=== PATIENT | male | born 2000 | race Caucasian/White ===

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

== ENCOUNTER 2021-04-03 14:49 | Outpatient (CLI) | payer MEDICAID | END 2021-04-03 14:50 | disposition home or self-care (01) | LOC: COV 14:49 | PROVIDERS: ATTEND Family Medicine | DX: R05.9 Cough, unspecified (principal); R06.02 Shortness of breath; R53.83 Other fatigue; R07.0 Pain in throat; R09.81 Nasal congestion; J34.89 Other specified disorders of nose and nasal sinuses; Z20.822 Contact with and (suspected) exposure to COVID-19 ==

== ENCOUNTER 2021-10-19 12:56 | Outpatient (CLI) | payer MEDICAID ==
[2021-10-19 13:08] LABS: BASOPHILS % (AUTO) 0.4 %; EOSINOPHILS # (AUTO) 0.2 10^3/uL (0.0-0.7); EOSINOPHILS % (AUTO) 2.8 %; HCT - HEMATOCRIT 44.3 % (42.0-52.0); HGB - HEMOGLOBIN 14.6 g/dL (14.0-18.0); LYMPHOCYTES # (AUTO) 2.9 10^3/uL (1.5-3.5); LYMPHOCYTES % (AUTO) 34.6 %; MEAN CORPUSCULAR HEMOGLOBIN 29.3 pg (27.0-31.0); MEAN PLATELET VOLUME 10.1 fL (7.4-11.4); MONOCYTES # (AUTO) 0.6 10^3/uL (0.0-1.0); MONOCYTES % (AUTO) 6.6 %; NEUTROPHILS # (AUTO) 4.7 10^3/uL (1.5-6.6); NEUTROPHILS % (AUTO) 55.4 %; PLT - PLATELET COUNT 255 10^3/uL (130-450); RED BLOOD COUNT 4.98 10^6/uL (4.70-6.10); RED CELL DISTRIBUTION WIDTH 13.4 % (12.0-15.0); WHITE BLOOD COUNT 8.5 x10^3/uL (4.8-10.8)
[2021-10-19 13:31] LABS: ALBUMIN 4.3 g/dL (3.2-5.5); ALBUMIN/GLOBULIN RATIO 1.3 (1.0-2.2); ALKALINE PHOSPHATASE 73 IU/L (42-121); ALT ALANINE AMINOTRANSFERASE 14 IU/L (10-60); AST ASPARTATE AMINOTRANSFERASE 16 IU/L (10-42); BILIRUBIN,TOTAL 0.3 mg/dL (0.2-1.0); BUN - BLOOD UREA NITROGEN 9 mg/dL (6-20); CALCIUM 9.4 mg/dL (8.5-10.3); CARBON DIOXIDE - CO2 24 mmol/L (21-32); CHLORIDE 104 mmol/L (101-111); CHOL/HDL RATIO 3.8 (<5.0); CHOLESTEROL 140 mg/dL; CREATININE 0.9 mg/dL (0.6-1.2); GFR - MDRD 108 (>89); GLUCOSE 91 mg/dL (70-100); HDL CHOLESTEROL 37 mg/dL; LDL CHOLESTEROL,CALCULATED 85 mg/dL; LDL/HDL RATIO 2.3 (<3.6); SODIUM 140 mmol/L (135-145); TOTAL PROTEIN 7.5 g/dL (6.7-8.2); TRIGLYCERIDES 91 mg/dL; VALPROIC ACID (DEPAKOTE) 75.5 ug/mL; VLDL CHOLESTEROL 18 mg/dL
[2021-10-19 13:44] LABS: LITHIUM 0.68 mmol/L
== END 2021-10-19 12:57 | disposition home or self-care (01) ==
LOC: LAB 12:56
DX: F31.13 Bipolar disorder, current episode manic without psychotic features, severe (principal); F43.10 Post-traumatic stress disorder, unspecified; F25.0 Schizoaffective disorder, bipolar type; Z79.899 Other long term (current) drug therapy
CPT/HCPCS: 36415; 80053; 80061; 80164; 80178; 83721; 85025

== ENCOUNTER 2021-10-21 20:37 | Outpatient (CLI) | payer MEDICAID | END 2021-10-21 20:38 | disposition EMS.NT | LOC: EMS 20:37 | DX: S51.812A Laceration without foreign body of left forearm, initial encounter (principal); X78.9XXA Intentional self-harm by unspecified sharp object, initial encounter ==

== ENCOUNTER 2021-10-21 21:38 | Emergency (ER) | payer MEDICAID ==
[2021-10-21 22:10] LABS: BASOPHILS % (AUTO) 0.2 %; EOSINOPHILS # (AUTO) 0.2 10^3/uL (0.0-0.7); EOSINOPHILS % (AUTO) 2.4 %; HCT - HEMATOCRIT 44.6 % (42.0-52.0); HGB - HEMOGLOBIN 14.5 g/dL (14.0-18.0); LYMPHOCYTES # (AUTO) 2.4 10^3/uL (1.5-3.5); MEAN CORPUSCULAR HEMOGLOBIN 29.1 pg (27.0-31.0); MEAN CORPUSCULAR HGB CONC 32.5 g/dL (32.0-36.0); MEAN CORPUSCULAR VOLUME 89.4 fL (80.0-94.0); MEAN PLATELET VOLUME 10.4 fL (7.4-11.4); MONOCYTES # (AUTO) 0.7 10^3/uL (0.0-1.0); MONOCYTES % (AUTO) 7.6 %; NEUTROPHILS # (AUTO) 5.7 10^3/uL (1.5-6.6); NEUTROPHILS % (AUTO) 63.6 %; PLT - PLATELET COUNT 226 10^3/uL (130-450); RED BLOOD COUNT 4.99 10^6/uL (4.70-6.10); RED CELL DISTRIBUTION WIDTH 13.3 % (12.0-15.0)
[2021-10-21] MEDS ORDERED: NICOTINE 14 MG PATCH TOP STA (22:27)
[2021-10-21 22:29] LABS: ACETAMINOPHEN < 10 ug/mL (10-30); ALBUMIN 4.3 g/dL (3.2-5.5); ALBUMIN/GLOBULIN RATIO 1.4 (1.0-2.2); ALKALINE PHOSPHATASE 72 IU/L (42-121); ALT ALANINE AMINOTRANSFERASE 13 IU/L (10-60); AST ASPARTATE AMINOTRANSFERASE 17 IU/L (10-42); BILIRUBIN,TOTAL 0.4 mg/dL (0.2-1.0); BUN - BLOOD UREA NITROGEN 9 mg/dL (6-20); CALCIUM 9.4 mg/dL (8.5-10.3); CARBON DIOXIDE - CO2 28 mmol/L (21-32); CHLORIDE 103 mmol/L (101-111); CREATININE 0.9 mg/dL (0.6-1.2); ETOH - ETHANOL < 5.0 mg/dL; GFR - MDRD 108 (>89); GLUCOSE 92 mg/dL (70-100); LIPASE 27 U/L (22-51); POTASSIUM 4.5 mmol/L (3.5-5.0); SALICYLATE < 6.0 mg/dL; SODIUM 140 mmol/L (135-145); TOTAL PROTEIN 7.4 g/dL (6.7-8.2)
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
[2021-10-21] MEDS ORDERED: LIDOCAINE 1% 2 ML VIAL SUBQ STA (22:52)
[2021-10-21 23:19] LABS: MUDS CUTOFF CONCENTRATIONS CUTOFF CONC BELOW:
[2021-10-21 23:27] LABS: BILIRUBIN,URINE NEGATIVE (NEGATIVE); GLUCOSE, URINE (UA) NEGATIVE (NEGATIVE); KETONES,URINE (UA) NEGATIVE (NEGATIVE); LEUKOCYTE ESTERASE, URINE NEGATIVE (NEGATIVE); NITRITE,URINE NEGATIVE (NEGATIVE); OCCULT BLOOD,URINE NEGATIVE (NEGATIVE); PH,URINE 7.5 PH (5.0-7.5); PROTEIN,URINE NEGATIVE (NEGATIVE); UROBILINOGEN,URINE 0.2 (NORMAL) E.U./dL (NORMAL)
[2021-10-21 23:29] LABS: CLARITY,URINE CLEAR (CLEAR)
[2021-10-21 23:41] LABS: AMPHETAMINE SCREEN,URINE NEGATIVE (NEGATIVE); BARBITURATE SCREEN,UR NEGATIVE (NEGATIVE); BENZODIAZEPINES SCREEN, URINE NEGATIVE (NEGATIVE); COCAINE SCREEN URINE NEGATIVE (NEGATIVE); METHADONE SCREEN, URINE NEGATIVE (NEGATIVE); METHAMPHETAMINES SCREEN, URINE NEGATIVE (NEGATIVE); OPIATE SCREEN, URINE NEGATIVE (NEGATIVE); OXYCODONE SCREEN, URINE NEGATIVE (NEGATIVE); PROPOXYPHENE SCREEN, URINE NEGATIVE (NEGATIVE); THC CANNABINOID SCREEN, URINE POSITIVE (NEGATIVE); TRICYCLIC ANTIDEPRESSANT,URINE NEGATIVE (NEGATIVE)
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
[2021-10-22] MEDS ORDERED: traZODone 50 MG TABLET PO STA (03:47)
[2021-10-22] MEDS ORDERED: DIVALPROEX DR 125 MG TABLET PO STA (04:15)
[2021-10-22] MEDS ORDERED: LITHIUM 150 MG CAPSULE PO STA (04:15)
[2021-10-22] MEDS ORDERED: OLANZapine ODT 5 MG TABLET TL STA (04:16)
[2021-10-22] MEDS ORDERED: FLUoxetine 10 MG CAPSULE PO STA (04:17)
[2021-10-22] MEDS ORDERED: FLUoxetine 10 MG CAPSULE PO SCH (09:00)
[2021-10-22] MEDS ORDERED: DIVALPROEX DR 250 MG TABLET PO SCH (09:00)
[2021-10-22] MEDS ORDERED: OLANZapine ODT 5 MG TABLET TL SCH (09:00)
[2021-10-22] MEDS ORDERED: LITHIUM 150 MG CAPSULE PO SCH (09:00)
[2021-10-22] MEDS ORDERED: LORazepam 1 MG TABLET PO STA ×2 (15:54→17:16)
[2021-10-22] MEDS: OLANZapine ODT 5 MG TABLET TL SCH (20:43)
[2021-10-22] MEDS: DIVALPROEX DR 250 MG TABLET PO SCH (20:43)
[2021-10-22] MEDS: LITHIUM 150 MG CAPSULE PO SCH (20:43)
[2021-10-22] MEDS ORDERED: traZODone 50 MG TABLET PO SCH (21:00)
[2021-10-22] MEDS ORDERED: NICOTINE 21 MG PATCH TOP STA (23:04)
[2021-10-23 07:36] VITALS: BP 98/52
[2021-10-23] MEDS: DIVALPROEX DR 250 MG TABLET PO SCH (08:28)
[2021-10-23] MEDS: LITHIUM 150 MG CAPSULE PO SCH (08:28)
[2021-10-23] MEDS: OLANZapine ODT 5 MG TABLET TL SCH (08:29)
[2021-10-23] MEDS ORDERED: haloperidoL 1 MG TABLET PO SCH (09:00)
[2021-10-23] MEDS ORDERED: FLUoxetine 10 MG CAPSULE PO SCH (09:00)
== END 2021-10-23 08:36 ==
LOC: EDUNIT# → ED 21:38
DX: S51.812A Laceration without foreign body of left forearm, initial encounter (principal); T14.91XA Suicide attempt, initial encounter; X78.1XXA Intentional self-harm by knife, initial encounter; F17.200 Nicotine dependence, unspecified, uncomplicated; Z20.822 Contact with and (suspected) exposure to COVID-19
CPT/HCPCS: 12002; 36415; 80053; 80178; 80306; 80307; 80320; 80329; 81003; 83690; 84443; 85025; 87635; 99283; 99285; A9270; G0425; J8499; Q3014; 81001; 87086

== ENCOUNTER 2023-03-28 11:17 | Outpatient (CLI) | payer MEDICARE, MEDICAID ==
[2023-03-28 11:29] LABS: BASOPHILS % (AUTO) 0.5 %; EOSINOPHILS # (AUTO) 0.2 10^3/uL (0.0-0.7); EOSINOPHILS % (AUTO) 2.4 %; HCT - HEMATOCRIT 46.6 % (42.0-52.0); HGB - HEMOGLOBIN 16.1 g/dL (14.0-18.0); LYMPHOCYTES # (AUTO) 2.3 10^3/uL (1.5-3.5); LYMPHOCYTES % (AUTO) 25.9 %; MEAN CORPUSCULAR HEMOGLOBIN 27.6 pg (27.0-31.0); MEAN CORPUSCULAR HGB CONC 34.5 g/dL (32.0-36.0); MEAN CORPUSCULAR VOLUME 79.9 fL (80.0-94.0); MEAN PLATELET VOLUME 10.2 fL (7.4-11.4); MONOCYTES # (AUTO) 0.5 10^3/uL (0.0-1.0); MONOCYTES % (AUTO) 5.5 %; NEUTROPHILS # (AUTO) 5.7 10^3/uL (1.5-6.6); NEUTROPHILS % (AUTO) 65.5 %; PLT - PLATELET COUNT 296 10^3/uL (130-450); RED BLOOD COUNT 5.83 10^6/uL (4.70-6.10); WHITE BLOOD COUNT 8.8 x10^3/uL (4.8-10.8)
[2023-03-28 11:46] LABS: BILIRUBIN,URINE NEGATIVE (NEGATIVE); GLUCOSE, URINE (UA) NEGATIVE (NEGATIVE); KETONES,URINE (UA) NEGATIVE (NEGATIVE); LEUKOCYTE ESTERASE, URINE NEGATIVE (NEGATIVE); NITRITE,URINE NEGATIVE (NEGATIVE); OCCULT BLOOD,URINE NEGATIVE (NEGATIVE); PH,URINE 6.5 PH (5.0-7.5); PROTEIN,URINE NEGATIVE (NEGATIVE); UROBILINOGEN,URINE 0.2 (NORMAL) E.U./dL (NORMAL)
[2023-03-28 11:47] LABS: CALCIUM 10.4 mg/dL (8.5-10.3); CHOL/HDL RATIO 5.2 (<5.0); CHOLESTEROL 165 mg/dL; HDL CHOLESTEROL 32 mg/dL; LDL CHOLESTEROL,CALCULATED 97 mg/dL; TRIGLYCERIDES 179 mg/dL (48-352); VLDL CHOLESTEROL 36 mg/dL
[2023-03-28 11:50] LABS: CLARITY,URINE CLEAR (CLEAR)
[2023-03-28 11:52] LABS: LITHIUM 0.59 mmol/L
[2023-03-28 12:00] LABS: THYROID STIMULATING HORMONE 4.52 uIU/mL (0.34-5.60)
[2023-03-28 16:33] LABS: ESTIMATED AVERAGE GLUCOSE 103 mg/dL (70-100); HEMOGLOBIN A1c% 5.2 % (4.27-6.07)
== END 2023-03-28 11:18 | disposition home or self-care (01) ==
LOC: LAB 11:17
PROVIDERS: ATTEND Nurse Practitioner Psychiatric/Mental Health
DX: F31.13 Bipolar disorder, current episode manic without psychotic features, severe (principal); F43.10 Post-traumatic stress disorder, unspecified; F25.0 Schizoaffective disorder, bipolar type; Z79.899 Other long term (current) drug therapy
CPT/HCPCS: 36415; 80061; 80178; 81003; 82310; 83036; 83721; 84443; 85025

== ENCOUNTER 2023-05-27 08:00 | Outpatient (CLI) | payer MEDICARE, MEDICAID | END 2023-05-27 08:01 | disposition home or self-care (01) | LOC: LAB.S 08:00 | DX: Z51.81 Encounter for therapeutic drug level monitoring (principal); Z79.899 Other long term (current) drug therapy | CPT/HCPCS: 81002 ==

== ENCOUNTER 2023-05-30 10:35 | Outpatient (CLI) | payer MEDICARE, MEDICAID ==
[2023-05-30 10:49] LABS: BASOPHILS % (AUTO) 0.5 %; EOSINOPHILS # (AUTO) 0.3 10^3/uL (0.0-0.7); EOSINOPHILS % (AUTO) 4.1 %; HCT - HEMATOCRIT 45.2 % (42.0-52.0); HGB - HEMOGLOBIN 14.8 g/dL (14.0-18.0); LYMPHOCYTES # (AUTO) 2.7 10^3/uL (1.5-3.5); LYMPHOCYTES % (AUTO) 34.7 %; MEAN CORPUSCULAR HEMOGLOBIN 28.1 pg (27.0-31.0); MEAN CORPUSCULAR HGB CONC 32.7 g/dL (32.0-36.0); MEAN CORPUSCULAR VOLUME 85.8 fL (80.0-94.0); MEAN PLATELET VOLUME 10.9 fL (7.4-11.4); MONOCYTES # (AUTO) 0.5 10^3/uL (0.0-1.0); MONOCYTES % (AUTO) 6.4 %; NEUTROPHILS # (AUTO) 4.2 10^3/uL (1.5-6.6); PLT - PLATELET COUNT 226 10^3/uL (130-450); RED BLOOD COUNT 5.27 10^6/uL (4.70-6.10); WHITE BLOOD COUNT 7.8 x10^3/uL (4.8-10.8)
[2023-05-30 11:08] LABS: ALBUMIN 4.5 g/dL (3.2-5.5); ALBUMIN/GLOBULIN RATIO 1.7 (1.0-2.2); ALKALINE PHOSPHATASE 81 IU/L (42-121); ALT ALANINE AMINOTRANSFERASE 14 IU/L (10-60); AST ASPARTATE AMINOTRANSFERASE 20 IU/L (10-42); BILIRUBIN,TOTAL 0.4 mg/dL (0.2-1.0); BUN - BLOOD UREA NITROGEN 10 mg/dL (6-20); CALCIUM 9.5 mg/dL (8.5-10.3); CARBON DIOXIDE - CO2 27 mmol/L (21-32); CHLORIDE 108 mmol/L (101-111); CHOL/HDL RATIO 4.6 (<5.0); CHOLESTEROL 155 mg/dL; GFR - MDRD 93 (>89); GLUCOSE 88 mg/dL (74-104); HDL CHOLESTEROL 34 mg/dL; LDL CHOLESTEROL,CALCULATED 93 mg/dL; LDL/HDL RATIO 2.7 (<3.6); POTASSIUM 4.2 mmol/L (3.5-4.5); SODIUM 141 mmol/L (135-145); TOTAL PROTEIN 7.1 g/dL (6.4-8.9); TRIGLYCERIDES 139 mg/dL (48-352); VLDL CHOLESTEROL 28 mg/dL
[2023-05-30 11:41] LABS: ESTIMATED AVERAGE GLUCOSE 103 mg/dL (70-100); HEMOGLOBIN A1c% 5.2 % (4.27-6.07)
[2023-05-30 11:43] LABS: LITHIUM 0.44 mmol/L
== END 2023-05-30 10:36 | disposition home or self-care (01) ==
LOC: LAB 10:35
DX: G25.1 Drug-induced tremor (principal); Z79.899 Other long term (current) drug therapy; Z13.9 Encounter for screening, unspecified; F25.9 Schizoaffective disorder, unspecified
CPT/HCPCS: 36415; 80053; 80061; 80178; 83036; 83721; 84443; 85025